=== PATIENT | female | born 1990 ===

== ENCOUNTER 2018-12-15 05:31 | Inpatient (IN) | payer OTHER ==
[2018-12-15 06:39] VITALS: BMI 32.1
[2018-12-15] MEDS ORDERED: Lactated Ringer's 1,000 ML IV ONE (06:48)
[2018-12-15] MEDS ORDERED: Oxytocin 30 UNIT 30 UNITS/500 ML BAG IV ONE ×2 (07:31→12:05)
[2018-12-15 08:06] LABS: BASO % 0.3 % (0.0-2.0); EOS # 0.1 K/uL (0.0-0.7); EOS % 0.9 % (0.0-4.0); LYMPH # 2.3 K/uL (1.0-4.3); LYMPH % 21.8 % (20.0-40.0); MEAN CELL VOLUME 98.6 fl (81.0-99.0); MEAN CORPUSCULAR HEMOGLOBIN 33.7 pg (27.0-31.0); MEAN CORPUSCULAR HGB CONC 34.2 g/dL (33.0-37.0); MEAN PLATELET VOLUME 12.1 fl (7.2-11.7); MONO # 0.9 K/uL (0.0-0.8); MONO % 8.7 % (0.0-10.0); NEUT # 7.3 K/uL (1.8-7.0); NEUT % 68.3 % (50.0-75.0); NRBC % 0.6 % (0.0-0.0); RBC 3.85 Mil/uL (3.80-5.20); RED CELL DISTRIBUTION WIDTH 14.5 % (11.5-14.5); WHITE BLOOD COUNT 10.7 K/uL (4.8-10.8)
[2018-12-15] MEDS: Lactated Ringer's 1,000 ML IV SCH ×2 (08:35→19:20)
--- NOTE | 2018-12-15 08:45 | OBHP ---
Datetime: 12/15/2018 07:45 FHR - Baseline A Provider: 150 NICHD Variability Prov Fetus A: Moderate 6-25bpm NICHD Accel Fetus A IP Provider: 15X15 FHR Category Provider Fetus A: Category I NICHD Decel Fetus A IP Provider: None Dilatation, Provider: 2 Effacement, Provider: 50 Station, Provider: -2 Datetime: 12/15/2018 06:58 IP Admit Plan: Admit to unit; Initiate labor protocol Pelvic Type - PN: Adequate Extremities - PN: Normal Abdomen - PN: Normal Back - PN: Normal Breast - PN: Not Done Lungs - PN: Normal Heart - PN: Normal Thyroid - PN: Normal Neurologic - PN: Normal HEENT - PN: Normal General - PN: Normal EGA AdmitDate IP: 40.6 Vital Signs Provider: Reviewed; Within Normal Limits IP Indication for Induction: Not Applicable IP Chief Complaint: Uterine contractions; Maternal discomfort Genitourinary Exam: Normal DTRs - PN: Normal Datetime: 12/15/2018 06:45 IP Adm Impression: Term, intrauterine ; Ruptured Membranes Admit Comment, IP Provider: 28 yo with IUP at 40+6 wk based on LMP presents to [facility] for CTX beginning 16 hours prior to admission. Water broke here in the hospital and was noted to be meconium stained, a heavy amount of FLUID noted. Denies vaginal bleeding. Denies chest pain, dyspnea, abdomin al pain, nausea, and vomiting. ROS: negative except for stated above in HPI Obhx: 2 previous SAB. Follows at [facility]. PMH: Denies PSH: Denies Medications: PNV Allergies: NKDA Social hx: Denies tobacco, alcohol or drug use. Family history: Not significant Labs: HIV: negative; HbsAg: negative; GBS: negative; Rubella: immune; RPR: Non-reactive; ABO: O+; Antibody: negative; Gc/Cl: negative; Quantiferon: negative. P.E: Vitally stable at this time. Patient is resting comfortably in her hospital bed. EFM: reactive NST Heart: S1 And S2 appreciated on exam. Lungs: Clear auscultation bilaterally. No wheezes, rhonchi or crackles. Abdomen: Gravid, soft, non-tender to palpation. Normo-active bowel sounds. Bedside U/S: Cephalic position ASSESSMENT/PLAN: 28 yo with IUP of 40+2 wks based on LMP admitted for labor -admit to L and D - Anticipate Vaginal delivery - NST reactive. -CBC, T_ S - LR -Continue TOCO and EFM monitoring - Anesthesia consult - Diet: clear fluid Discussed with Dr. Melissa Thomas, PGY1 OB Hospitalist on-call. Agree with note. Pt seen and examiend by me WILLY haley pt about labor, pain management, delivery, medications, and risks/complciaitons. H er questions answered. WILLY Amniotic Fluid Color, Provider: Meconium, Light Membranes, Provider: Ruptured Contraction Comments Provider: EVERY 5 MINUTES Pool Provider: Positive IP Hx Assessment: The History has been Reviewed and is Current
--- NOTE | 2018-12-15 08:49 | OBPN ---
Datetime: 12/15/2018 07:45 IP Progress Impression: Normal progression of labor IP Progress Plan: Continue present management; Augmentation; Anticipate Vaginal Delivery FHR - Baseline A Provider: 150 IP Progress Note Comment: S: patient is comfortable at this time but reports some pain during contra ctions O: SVE: 50/-2 A+P: - continue current management. - Augment with Pitocin at this time - Nitrous for pain relief. Hannah Gallo, PGY1 OB Hospitalist note. Agree with above MAHNDO NICHD Accel Fetus A IP Provider: 15X15 FHR Category Provider Fetus A: Category I NICHD Variability Prov Fetus A: Moderate 6-25bpm Dilatation, Provider: 2 Effacement, Provider: 50 Station, Provider: -2 NICHD Decel Fetus A IP Provider: None Datetime: 12/15/2018 06:58 Vital Signs Provider: Reviewed; Within Normal Limits Datetime: 12/15/2018 06:45 Pool Provider: Positive Membranes, Provider: Ruptured Amniotic Fluid Color, Provider: Meconium, Light Contraction Comments Provider: EVERY 5 MINUTES
[2018-12-15] MEDS: Oxytocin 30 UNIT 30 UNITS/500 ML BAG IV ONE ×2 (08:59→13:19)
[2018-12-15] MEDS ORDERED: Fentanyl/Bupivacaine HCl 250 ML EPI ONE (11:01)
[2018-12-15] MEDS ORDERED: ceFAZolin 2 GM in Sodium Chloride 0.9% 100 ML IVPB ONE (12:05)
[2018-12-15] MEDS ORDERED: Azithromycin 500 MG in Sodium Chloride 0.9% 250 ML IVPB STA (12:06)
[2018-12-16] MEDS ORDERED: Gentamicin 80 mg/2mL Inj. ONE (01:17)
[2018-12-16] MEDS: Lactated Ringer's 1,000 ML IV SCH ×2 (01:30→06:45)
[2018-12-16] MEDS: AMPicillin 2 GM in Sodium Chloride 0.9% 100 ML IVPB SCH ×4 (01:30→19:36)
[2018-12-16] MEDS: Gentamicin 80mg/50ml NS 80 MG/50 ML BAG IVPB SCH ×3 (02:00→17:37)
[2018-12-16 03:57] LABS: BASO % 0.2 % (0.0-2.0); HEMOGLOBIN 12.4 g/dL (12.0-16.0); LYMPH % 7.2 % (20.0-40.0); MEAN CELL VOLUME 98.8 fl (81.0-99.0); MEAN CORPUSCULAR HGB CONC 33.4 g/dL (33.0-37.0); MEAN PLATELET VOLUME 11.3 fl (7.2-11.7); MONO # 0.8 K/uL (0.0-0.8); MONO % 6.1 % (0.0-10.0); NEUT # 11.8 K/uL (1.8-7.0); NEUT % 86.5 % (50.0-75.0); NRBC % 0.1 % (0.0-0.0); PLATELET COUNT 84 K/uL (130-400); RBC 3.76 Mil/uL (3.80-5.20); RED CELL DISTRIBUTION WIDTH 14.3 % (11.5-14.5); WHITE BLOOD COUNT 13.7 K/uL (4.8-10.8)
[2018-12-16] MEDS ORDERED: Morphine 1 mg/ml preservative-free Inj(Duramorph) ONE (05:30)
[2018-12-16] MEDS ORDERED: OXYTOCIN/0.9 % NS 20 UNIT/1,000 ML BAG IV SCH ×2 (05:45→12:51)
[2018-12-16] MEDS ORDERED: ceFAZolin 1 GM in Sodium Chloride 0.9% 100 ML IVPB ONE (05:46)
[2018-12-16] MEDS ORDERED: Propofol 10 mg/ml Inj (20 ML) ONE (06:01)
[2018-12-16 06:43] LABS: ANISOCYTOSIS SLIGHT; BANDS 4 % (0-2); EOSINOPHIL 1 % (0-7); LARGE PLATELETS PRESENT; LYMPHOCYTE 6 % (20-50); MONOCYTE 6 % (0-10); MYELOCYTE 2 % (0-0); NEUTROPHIL 81 % (42-75); PLATELET ESTIMATE MARKEDLY DECREASED (NORMAL); STOMATOCYTES SLIGHT; TOTAL CELLS COUNTED 100
[2018-12-16] MEDS ORDERED: Morphine 4 MG/ML VIAL IV PRN ×2 (06:58→12:51)
[2018-12-16] MEDS ORDERED: Oxycodone/Acetaminophen 5/325 mg Tab PO PRN ×3 (06:59→12:51)
--- NOTE | 2018-12-16 08:07 | OBPN ---
Datetime: 12/16/2018 04:22 IP Progress Impression: Normal progression of labor; Chorioamnionitis IP Procedures: Sterile Vag Exam (Annotations: Data stored by CPN on behalf of user) Membranes, Provider: Ruptured Amniotic Fluid Color, Provider: Meconium, Light Contraction Comments Provider: Q4 min FHR - Baseline A Provider: 165 Gestation - Est Wks by US: 41.0 Presentation-Admit: Vertex IP Progress Note Comment: Patient resting comfortably, feels better after rectal tylenol. HR tachycardia has improved after tylenol and IV antibiotics. Occasional late decelerations 1. Continue ampicillin/gentomicin for suspected clinical chorioamnionitis 2. Patient is making consistent cervical change, continue pitocin augmentation 3. Anticipate vaginal delivery soon, reasonable to continue current management as long as mother a nd fetus remain stable 4. Patient is getting bolus, we will try repositioning for Category II strip Charla Shelley MD OB Fellow FHR Category Provider Fetus A: Category II NICHD Variability Prov Fetus A: Moderate 6-25bpm Dilatation, Provider: 9 Effacement, Provider: 100 NICHD Decel Fetus A IP Provider: Late Datetime: 12/16/2018 01:24 IP Informed Consent Obtain: Vaginal Delivery IP Progress Plan: Continue present management; Antibiotic therapy NICHD Accel Fetus A IP Provider: 15X15 Station, Provider: -2
--- NOTE | 2018-12-16 08:07 | OBDS ---
MATERNAL INFORMATION Provider Comments: see operative report LABOR SUMMARY EDC: 12/09/2018 00:00 No. Babies in Womb: 1 LABOR INFORMATION Onset of Labor: 12/15/2018 04:15 Group B Beta Strep: Negative MEMBRANES Membranes Rupture Method: Spontaneous Rupture of Membranes: 12/15/2018 06:15 Amniotic Fluid Color: Clear Amniotic Fluid Amount: Scant Amniotic Fluid Odor: None
--- NOTE | 2018-12-16 08:09 | OBPN ---
Datetime: 12/16/2018 08:07 IP Progress Note Comment: patient noted to have prolonged deceleration ,n oted to have maternal temp , scant meconium categpory 2 tracing. Pat consented for primary operative delivery. Discussed r/b/a t o surgery and patient and partner agree with poc
[2018-12-16] MEDS ORDERED: Multivitamin With Minerals Tab PO SCH (09:00)
[2018-12-16] MEDS ORDERED: Simethicone 80 mg Chewtab PO SCH (10:00)
--- NOTE | 2018-12-16 11:11 | CP.PCM.PCO ---
Physician Communication Note - Physician Communication Note Physician Communication Note: RN got needlestick injury from baby, mother consented for exposure labs
[2018-12-16 12:40] LABS: ALB/GLOB RATIO 0.9 (1.0-2.1); ALBUMIN 2.1 g/dL (3.5-5.0); ALT/SGPT 37 U/L (9-52); AST/SGOT 55 U/L (14-36)
[2018-12-16] MEDS ORDERED: ceFAZolin 2 GM in Sodium Chloride 0.9% 100 ML IVPB ONE (12:51)
[2018-12-16] MEDS ORDERED: Oxytocin 30 UNIT 30 UNITS/500 ML BAG IV ONE (12:51)
[2018-12-16] MEDS ORDERED: Azithromycin 500 MG in Sodium Chloride 0.9% 250 ML IVPB STA (12:51)
[2018-12-16] MEDS ORDERED: Lactated Ringer's 1,000 ML IV SCH (12:51)
[2018-12-16] MEDS ORDERED: Fentanyl/Bupivacaine HCl 250 ML EPI ONE (12:51)
[2018-12-16 16:20] LABS: HEPATITIS B SURFACE AG Negative (NEGATIVE)
[2018-12-16 16:38] LABS: HEPATITIS C ANTIBODY NEGATIVE (NEGATIVE)
[2018-12-16] MEDS: Simethicone 80 mg Chewtab PO SCH ×2 (17:34→21:54)
[2018-12-16] MEDS: Oxycodone/Acetaminophen 5/325 mg Tab PO PRN (17:34)
--- NOTE | 2018-12-16 18:33 | OP ---
PROCEDURE DATE: 12/16/2018 PREOPERATIVE DIAGNOSIS: Maternal temperature chorioamnionitis category 2 tracing. POSTOPERATIVE DIAGNOSIS: Maternal temperature chorioamnionitis category 2 tracing. OPERATION PERFORMED: Primary low-flap transverse section via Pfannenstiel skin incision. SURGEON: Mandy Salmeron MD. ENDODONTICS DENTIST: Dr. Charla Shelley. She was helpful in creating exposure obtaining hemostasis, delivery of the baby, and closure of the patient. The procedure would not have been possible without her assistance. ANESTHESIA: Epidural. ANESTHESIA ADMINISTERED BY: Dr. Ruelas. ESTIMATED BLOOD LOSS: 800 mL. URINE OUTPUT: Aguilar catheter put out approximately 150 mL of clear urine. INTRAVENOUS FLUID INTAKE: The patient received 1500 mL of D5 LR intraoperatively. OPERATIVE FINDINGS: Baby boy, vertex presentation. Apgars 5 and 7, weighing 4090 g. Normal uterus, tubes, and ovaries were identified. COMPLICATIONS: There were no complications. DESCRIPTION OF PROCEDURE: After informed consent was obtained, the patient was taken to the operating room where she was given spinal anesthesia. The patient was then prepped and draped in a normal sterile fashion with a leftward tilt. A Pfannenstiel skin incision was then made with a scalpel and carried down to the underlying layer of fascia. The fascia was nicked in the midline. The fascial incision was then extended laterally with a curved Bragg scissors. The superior aspect of the fascial incision was then grasped with Jaclyn clamps, elevated up, and the rectus muscles were then dissected off using both sharp and blunt dissection. Attention was then turned to the inferior aspect of the fascial incision, which in a similar fashion was grasped with Jaclyn clamps, elevated up, and the rectus muscles were dissected off using both sharp and blunt dissection. The rectus muscles were then in the midline. The peritoneum was identified and entered sharply with the Metzenbaum scissors. The peritoneal incision was then extended superiorly and inferiorly with good visualization of the bladder. The bladder blade was then inserted. The vesicouterine peritoneum was identified and entered sharply with the Metzenbaum scissors. Peritoneal incision was then extended laterally. The bladder flap was created digitally. The bladder blade was then readjusted and a low transverse incision was made with a scalpel. The incision was then extended laterally with the bandage scissors. Macrocrania was noted. 's head was then delivered atraumatically. The nose and mouth were suctioned with the use of a suction trap. The cord was clamped and cut. The infant was handed off to the awaiting pediatricians. The placenta was then removed manually. The uterus was then exteriorized and cleared of all clots and debris. The uterine incision was repaired with 0 Vicryl in a running locked fashion. The second layer of the same suture was used to obtain excellent hemostasis. The uterus was then returned to the abdomen. The abdomen was then copiously irrigated. The irrigant was removed with a suction device. The gutters were cleared off all clots and debris. The uterine incision was examined and noted to be hemostatic. The peritoneum was then closed with 2-0 Vicryl in a running fashion. The muscles were reapproximated with 0 Vicryl in an interrupted fashion. The fascia was closed with 0 Vicryl in a running fashion. The skin was closed with 3-0 on a Oscar needle. All sponge, lap, needle, and instrument counts were correct x2. The patient was taken to the recovery room in awake and stable condition. Mandy Salmeron MD MEME
[2018-12-17] MEDS: AMPicillin 2 GM in Sodium Chloride 0.9% 100 ML IVPB SCH ×4 (02:09→18:55)
[2018-12-17] MEDS: Gentamicin 80mg/50ml NS 80 MG/50 ML BAG IVPB SCH ×3 (02:48→17:14)
[2018-12-17] MEDS: Simethicone 80 mg Chewtab PO SCH ×4 (04:09→22:08)
[2018-12-17 06:34] LABS: HEMOGLOBIN 10.9 g/dL (12.0-16.0); MEAN CELL VOLUME 99.7 fl (81.0-99.0); MEAN CORPUSCULAR HEMOGLOBIN 33.3 pg (27.0-31.0); MEAN CORPUSCULAR HGB CONC 33.4 g/dL (33.0-37.0); RBC 3.26 Mil/uL (3.80-5.20); RED CELL DISTRIBUTION WIDTH 14.8 % (11.5-14.5); WHITE BLOOD COUNT 22.6 K/uL (4.8-10.8)
[2018-12-17] MEDS: Oxycodone/Acetaminophen 5/325 mg Tab PO PRN (06:51)
[2018-12-17] MEDS: Multivitamin With Minerals Tab PO SCH (12:32)
[2018-12-18] MEDS: Simethicone 80 mg Chewtab PO SCH ×4 (04:02→23:06)
[2018-12-18] MEDS: Oxycodone/Acetaminophen 5/325 mg Tab PO PRN (06:28)
--- NOTE | 2018-12-18 08:30 | OBPPN ---
Datetime: 12/18/2018 06:35 PP Pain Prov: Within normal limits PP Nausea Prov: Denies PP Flatus Prov: Yes PP BM Prov: No PP Breasts Prov: Not Done PP Heart Prov: Normal PP Lungs Prov: Normal PP Abdomen/Uterus Prov: Normal PP Lochia Prov: Normal PP Vulva/Perineum Prov: Not Done PP CVA Tenderness Prov: Normal PP Extremities Prov: Normal PP C/S Incision Prov: Normal PP Progress Prov: Normal PP Impression Prov: Normal progression PP Plan Prov: Continue present management PP Progress Note Prov: POD 2 S: 28 yo s/p C-sec on 12/16/18, POD2. No overnight events. Pain tolerated with medication. Ambulating without dizziness/ lightheadedness/palpatations. Exclusively bottle feeding. Lochia < mens es. + flatus/- BM. Denies fever/chills, diarrhea, nausea/vomiting, chest pain, dyspnea, and dizziness . Tolerating regular diet. O: VS: stable GEN: NAD Cardio: S1S2, no murmurs Lungs: clear breath sounds b/l, no wheezing Abdomen: BS+, appropriate tenderness to palpation. Incision not visualized, dressing intact dry an d clean. Uterus is firm and at the level of the umbilicus. Appropriate tenderness EXT: No edema, calves non-tender NEURO/PSYCH: AAOx3, no grossly focal deficits, preserved affect and mood. H/H: aCBC 12.4/37.1 pCBC: 10.9/32.5 Assessment/Plan: 28 yo s/p C-sec on 12/16/18, POD2. Pt remains afebrile, tolerating pain wi th medication. -Ampicillin, Gentamycin _ Clindomycin treatment for chorio, discontinued as patient has remained a febrile for >24 hours -Anticipating discharge 12/19 -Encourage ambulating -Percocet 5/325mg q4 and Motrin 600mg po q6 for pain as per pain scale -Senakot 17.2mg po QHS -Mylicon 80mg Q6H -Encourage and ambulation Case discussed with Dr Melodie Thomas PGY1 OB Hospitalist Addendum: Pt seen and examined by me. Agree w/ above. POD 2 s/p primary emergency c/s for NRFHT and arrest of labor. Continue current care. (ES) IP PP Procedures: None Vital Signs Provider PP: Reviewed; Within Normal Limits
[2018-12-18] MEDS: Multivitamin With Minerals Tab PO SCH (09:37)
[2018-12-18] MEDS ORDERED: Lansinoh for Breast Feeding Mothers TP ONE (21:14)
[2018-12-19] MEDS: Simethicone 80 mg Chewtab PO SCH ×2 (04:47→09:35)
[2018-12-19] MEDS: Multivitamin With Minerals Tab PO SCH (12:12)
--- NOTE | 2018-12-19 13:35 | OBPPN ---
Datetime: 12/19/2018 07:28 PP Pain Prov: Within normal limits PP Nausea Prov: Denies PP Flatus Prov: Yes PP BM Prov: Yes PP Breasts Prov: Not Done PP Heart Prov: Normal PP Lungs Prov: Normal PP Abdomen/Uterus Prov: Normal PP Lochia Prov: Not Done PP Vulva/Perineum Prov: Not Done PP CVA Tenderness Prov: Normal PP Extremities Prov: Normal PP C/S Incision Prov: Normal PP Progress Prov: Normal PP Impression Prov: Normal progression PP Plan Prov: Discharge PP Progress Note Prov: POD 3 S: 28 yo s/p C-sec on 12/16/18, POD3. No overnight events. Pain tolerated with medication. Ambulating without dizziness/ lightheadedness/palpatations. Exclusively bottle feeding. Lochia < mens es. + flatus/+BM. Denies fever/chills, diarrhea, nausea/vomiting, chest pain, dyspnea, and dizziness. Tolerating regular diet. O: VS: stable GEN: NAD Cardio: S1S2, no murmurs Lungs: clear breath sounds b/l, no wheezing Abdomen: BS+, appropriate tenderness to palpation. Incision not visualized, dressing intact dry an d clean. Uterus is firm and at the level of the umbilicus. Appropriate tenderness EXT: No edema, calves non-tender NEURO/PSYCH: AAOx3, no grossly focal deficits, preserved affect and mood. H/H: aCBC 12.4/37.1 pCBC: 10.9/32.5 Assessment/Plan: 28 yo s/p C-sec on 12/16/18, POD3. Pt remains afebrile, tolerating pain wi th medication. -Ampicillin, Gentamycin _ Clindamycin treatment for chorio, discontinued as patient has remained a febrile for >24 hours -Discharge today 12/19 -Encourage ambulating -Percocet 5/325mg q4 and Motrin 600mg po q6 for pain as per pain scale -Senakot 17.2mg po QHS -Mylicon 80mg Q6H -Encourage and ambulation Marianna Washington, PGY1 Attending Note: Patient was seen and evaluated with the resident and I agree with the above assess ment. IP PP Procedures: None Vital Signs Provider PP: Reviewed
--- NOTE | 2018-12-19 13:35 | OBDCSUM ---
Datetime: 12/19/2018 07:30 Discharged to, Provider: Home Follow up at, Provider: [facility], [place], [facility] Disch Instr Activity: Normal activity Disch Instr Diet: Regular Discharge Instructions, Provider: Routine instructions given Discharge Diagnosis, Provider: Term Delivered Follow up in weeks, Provider: 1 week Disch Referrals: None Contraception discussed, Prov: Yes Disch Activity Restrictions: No exercising; No lifting; No sexual activity; Nothing in vagina - Inte rcourse, tampons, douche Discharge Comment, Provider: 28 yo s/p C-sec of baby boy on 12/16/18 at 40+6 weeks EGA. : Male, Wt. 4090 gm, 5/7 Post- D/C Summary: Patient was noted to spike fever of 102 degrees Fahrenheit post op. Edelmira nt was treated for Chorioamnionitis as she had a prolonged second stage >2 hrs. Patient was treated w ith Ampicillin/Gentamicin/ and Clindamycin until patient was afebrile for 24 hours. Patient has been afebrile >24 hours. Lochia is less than menses. Pt able to pass flatus, voiding well and able to ambu late without difficulty. Admits to one BM. Tolerating regular diet w/o N/V. Fundus firm below umbilic us level. Pt is hemodynamically stable. Of note, baby was in level 2 nursery. H/H: aCBC: 12.4/37.1; pCBC: 10.9/32.5 Discharge Instructions given to patient: Encourage PNV 1 tab po q/day Ibuprofen 600 mg 1 tab po prn q4-6 if moderate pain #30. NO REFILL. Percocet 5/325 mg 1tab po prn q6h if severe pain #20. NO REFILL Ambulatory with caution, nothing per vagina/sex for 4 weeks, no heavy lifting, avoid stairs, if ex cessive bleeding or fever without relief from Tylenol go to ED ED precautions: If excessive bleeding, pain that does not get relief, fever >100.4, palpitations, SOB, CP or other concerning symptom go to the ED. PT was urged if feeling sad, mood swing, depression, neglect of baby, suicidal thoughts, homicidal thoughts go to ER or call 911 for help Pt should go to her Primary care doctor if have difficulty with breast feeding Follow-up at [facility] in 1 week for wound check and in 6 weeks for visit. Marianna Washington, PGY1 Contraception after Delivery: Undecided
[2018-12-19 20:24] VITALS: BP 135/87; PULSE 83; RESP 20; TEMP 98.5; O2SAT 100
== END 2018-12-19 15:20 | disposition home or self-care (01) | DRG 371 ==
LOC: H.EROB2 05:31 → H.L&D 06:49 → H.OB/GYN 12-16 10:25
PROVIDERS: ADMIT Obstetrics & Gynecology; ATTEND Obstetrics & Gynecology
PROC: 4A1HXCZ Monitoring of Products of Conception, Cardiac Rate, External Approach (ICD-10-PCS; 2018-12-15)
PROC: 10D00Z1 Extraction of Products of Conception, Low, Open Approach (ICD-10-PCS; principal; 2018-12-16)
DX: O76 Abnormality in fetal heart rate and rhythm complicating labor and delivery (principal); O77.0 Labor and delivery complicated by meconium in amniotic fluid; O41.1230 Chorioamnionitis, third trimester, not applicable or unspecified; O62.1 Secondary uterine inertia; Z3A.41 41 weeks gestation of pregnancy; Z37.0 Single live birth